=== PATIENT | male | born 2000 | race Caucasian/White ===

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

== ENCOUNTER 2018-02-13 20:40 | Emergency (ER) | payer SELFPAY ==
[~2018-02-13] VITALS: Ht 177.8 cm; Wt 63.5 kg
[~2018-02-13 20:40] MED LIST changes: +NAPR-1071 PO; -NAPR500T PO
--- NOTE | 2018-02-13 21:05 | ED Lower Extremity ---
General Chief Complaint: Lower Extremity Stated Complaint: LEFT ANKLE SWELLING, GETTING COLDER Nursing Triage Note: PT STATES HE TRIPED OVER HIS CAT AND FELL DOWN THE STAIRS. DENIES STRIKING HIS HEAD, WAS SEEN AT [facility] TODAY AND PROVIDED AN ESCOBAR WRAP TO THE LEFT ANKLE. PRESENTS TO THE ED D/T INCREASING SWELLING WITH INCREASED COLDNESS TO THE SKIN OF THE AFFECTED FOOT. PT REPORTS DECREASED ROM. Source: patient Exam Limitations: no limitations History of Present Illness Date Seen by Provider: Feb 13, 2018 Time Seen by Provider: 20:55 Initial Comments PT ARRIVES VIA POV C/O LEFT ANKLE INJURY STATES HE WAS ON HIS WAY TO TAKE FINAL EXAMS, AND TRIPPED OVER CAT AND FELL DOWN APPROXIMATELY 8 STEPS--STATES HE ROLLED DOWN THE STEPS--OCCURRED AT 1535 STATES HE DID HIT THE BACK OF HIS HEAD, BUT DID NOT HAVE LOSS OF CONSCIOUSNESS, DOES NOT HAVE A HEADACHE, NO VISION CHANGES, NO DIZZINESS, NO NAUSEA/VOMITING NO NECK OR BACK PAIN NO PARESTHESIAS OR MOTOR DEFICITS NO OTHER INJURIES ANYWHERE ELSE ON BODY, EXCEPT FOR LEFT ANKLE NO PRIOR INJURY TO THIS ANKLE STATES HE WENT TO [facility] AROUND 1750 AND HAD XRAYS, BUT WAS TOLD "THEY SAID THEY DIDN'T KNOW IF IT WAS BROKEN OR NOT" AND WRAPPED IN ESCOBAR WRAP, NO CRUTCHES, AND NO RX. STATES SINCE THEN, HE HAS HAD INCREASED PAIN, INCREASED SWELLING AND FOOT IS STARTING TO FEEL COLD. PCP: [facility] Allergies and Home Medications Allergies Coded Allergies: No Known Drug Allergies (Unverified , 05/15/14) Home Medications Baclofen 10 Mg Tablet, 10 MG PO Q8H PRN for SPASMS Prescribed by: LILIANE DAVID on 10/30/16 1443 Naproxen 500 Mg Tablet, 500 MG PO BID PRN for PAIN-MODERATE Prescribed by: LILIANE DAVID on 10/30/16 144 Prednisone 20 Mg Tab, 40 MG PO DAILY Prescribed by: LILIANE DAVID on 10/30/16 1443 Patient Home Medication List Home Medication List Reviewed: Yes Review of Systems Constitutional: no symptoms reported EENTM: no symptoms reported Respiratory: no symptoms reported Cardiovascular: no symptoms reported Gastrointestinal: no symptoms reported Genitourinary: no symptoms reported Musculoskeletal: see HPI Skin: no symptoms reported Psychiatric/Neurological: No Symptoms Reported Past [place]-Mcaozo-Srmkxe Hx Patient Social History 2nd Hand Smoke Exposure: No Recent Foreign Travel: No Contact w/Someone Who Travel: No Recent Infectious Disease Expo: No Recent Hopitalizations: No Immunizations Up To Date Tetanus Booster (TDap): Unknown Seasonal Allergies Seasonal Allergies: No Past Medical History Surgeries: No Respiratory: No Cardiac: No Neurological: No Reproductive Disorders: No Genitourinary: No Gastrointestinal: No Musculoskeletal: No Endocrine: No Cancer: No Psychosocial: No Integumentary: No Blood Disorders: No Adverse Reaction/Blood Tranf: No Family Medical History No Pertinent Family Hx Physical Exam Vital Signs Vital Signs - First Documented 02/13/18 20:52 Temp 99.7 Pulse 118 Resp 20 B/P (MAP) 163/97 Pulse Ox 96 O2 Delivery Room Air Capillary Refill : Height, Weight, BMI Height: 5'10.00" Weight: 140lbs. oz. 63.178411qd; 14.06 BMI Method:Stated General Appearance: WD/WN, no apparent distress HEENT: PERRL/EOMI, normal ENT inspection, TMs normal, pharynx normal Neck: non-tender, full range of motion, supple, normal inspection Cardiovascular: normal peripheral pulses, regular rate, rhythm, no edema, no JVD, no murmur Respiratory: chest non-tender, normal breath sounds, no respiratory distress, no accessory muscle use Gastrointestinal: normal bowel sounds, non tender, soft, no organomegaly Back: normal inspection, no CVA tenderness, no vertebral tenderness Hips: bilateral hip non-tender, bilateral hip normal inspection, bilateral hip normal range of motion, bilateral hip no evidence of injury Legs: bilateral leg non-tender, bilateral leg normal inspection, bilateral leg normal range of motion, bilateral leg no evidence of injury Knees: bilateral knee non-tender, bilateral knee normal inspection, bilateral knee normal range of motion, bilateral knee no evidence of injury Ankles: right ankle non-tender, right ankle normal inspection, right ankle normal range of motion, right ankle no evidence of injury; left ankle limited range of motion, left ankle pain, left ankle soft tissue tenderness, left ankle swelling, left ankle other (SIGNIFICANT SWELLING TO LEFT ANKLE--MOSTLY LATERAL MALLEOLUS, WITH MARKED TENDERNESS. NO SIGNIFICANT ECCHYMOSIS AND NO ABRASIONS TO AREA. DISTAL MOTOR/SENSORY/VASCULAR INTACT. 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, no motor/sensory deficits, alert, normal mood/affect, oriented x 3 Skin: normal color, warm/dry, other (NO WOUNDS ANYWHERE) Procedures/Interventions Splinting and Joint Reduction : Escobar wrap: Yes Immobilizers: Step Light Walker s/m/lg Progress/Results/Core Measures Results/Orders My Orders Orders - KEVEN ONTIVEROS DO Ankle, Left, 3 Views (02/13/18 20:58) Vital Signs/I&O 02/13/18 20:52 Temp 99.7 Pulse 118 Resp 20 B/P (MAP) 163/97 Pulse Ox 96 O2 Delivery Room Air Progress Progress Note : Progress Note PT DECLINES CRUTCHES AT THIS TIME--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 Referrals: NO,LOCAL PHYSICIAN (PCP/Family) Primary Care Physician Patient Instructions: Ankle Sprain (DC), How to Use an Elastic Bandage Add. Discharge Instructions: ESCOBAR WRAP AND BOOT NEEDED FOR PAIN ICE TO AREA AT 20 MINUTE INTERVALS WIGGLE TOES FREQUENTLY ELEVATE FOOT MUCH POSSIBLE FOLLOW UP WITH [facility] IN 1 WEEK IF NO BETTER All discharge instructions reviewed with patient and/or family. Voiced understanding. Scripts Tramadol HCl (Ultram) 50 Mg Tablet 50 MG PO Q4H, #10 TAB Prov: KEVEN ONTIVEROS DO 02/13/18 Naproxen (Naproxen) 500 Mg Tablet 500 MG PO BID, #12 TAB Prov: KEVEN ONTIVEROS DO 02/13/18 KEVEN ONTIVEROS DO Feb 13, 2018 21:05
--- NOTE | 2018-02-13 21:29 | Diagnostic Imaging Report ---
EXAMINATION: Left ankle, 3 views INDICATION: Left ankle pain after a fall down stairs. Swelling of the lateral left ankle. COMPARISON: 12/12/2013 left ankle radiographs. FINDINGS: No fracture or acute osseous abnormality. Intact ankle mortise, including the medial and lateral clear space. No osteochondral lesion of the talar dome. Bony alignment is maintained. No significant arthritic change. There is marked soft tissue swelling involving the lateral ankle soft tissues. IMPRESSION: Moderate swelling of the soft tissues in the lateral ankle, without evidence of acute fracture or dislocation. Dictated by: Dictated on workstation # [id number]
[2018-02-13] MEDS ORDERED: RX-NAPROXEN (NAPROSYN) 250 MG TAB PPK#4 PO STA (21:39)
[2018-02-13] MEDS ORDERED: RX-TRAMADOL 50 MG (ULTRAM) TAB PPK#4 PO STA (21:39)
[2018-02-13] MEDS ORDERED: NAPR-915 PO (21:44)
[2018-02-13] MEDS ORDERED: TRAM-42 PO (21:44)
[2018-02-13] MEDS ORDERED: RX-TRAMADOL 50 MG (ULTRAM) TAB PPK#4 PO ONE (22:04)
[2018-02-13] MEDS ORDERED: RX-NAPROXEN (NAPROSYN) 250 MG TAB PPK#4 PO ONE (22:05)
== END 2018-02-13 22:11 | disposition home or self-care (01) ==
LOC: EDUNIT# 20:40 → ER 20:41
DX: S93.402A Sprain of unspecified ligament of left ankle, initial encounter (principal); Z79.52 Long term (current) use of systemic steroids; W01.0XXA Fall on same level from slipping, tripping and stumbling without subsequent striking against object, initial encounter; W10.8XXA Fall (on) (from) other stairs and steps, initial encounter; W22.09XA Striking against other stationary object, initial encounter
CPT/HCPCS: 73610

== ENCOUNTER 2018-02-21 10:42 | Emergency (ER) | payer BC, OTHER ==
[~2018-02-21] VITALS: Ht 177.8 cm; Wt 63.0 kg
[~2018-02-21 10:42] MED LIST changes: +NAPR-915 PO; +TRAM-42 PO
--- OUTSIDE RECORDS SUMMARY | 2018-02-21 10:50 | XMS REPORT ---
Author Author JERRY ESPINOSA Organization [facility] Address [address] [place] [address] Care Team Providers Care Swimming Pool Maintenance Supervisor Name Role Phone JERRY ESPINOSA Unavailable PROBLEMS No Known Problems ALLERGIES No Known Allergies ENCOUNTERS Encounter Location Date Diagnosis [facility] [address] [address] Feb, Acute left ankle pain M25.572 and Sprain of left ankle, unspecified ligament, initial encounter S93.402A [facility] [address] [address] Jan, Non-intractable vomiting with nausea, unspecified vomiting type R11.2 [facility] [id number] [place] [address] [phone] Nov, Dental examination Z01.20 and Caries K02.9 [facility] [id number] [place] [address] Oct, Viral gastroenteritis A08.4 [facility] [id number] [place] [address] [phone] Mar, Dental examination Z01.20 [facility] [id number] [place] [address] [phone] Nov, Dental examination Z01.20 [facility] [id number] [place] [address] [phone] Sep, Dental examination Z01.20 [facility] [address] [id number] Jun, Encounter for dental examination Z01.20 [facility] [address] [id number] Jun, Dental examination Z01.20 [facility] [address] [phone] May, Dental examination Z01.20 [facility] [address] [place] [address] [phone] Apr, Dental examination Z01.20 [facility] [address] [place] [address]- [address] Mar, Dental examination Z01.20 [facility] [id number] [place] [address] [phone] Feb, Dental examination Z01.20 [facility] [id number] [place] [address] [phone] Dec, Dental examination Z01.20 [facility] [id number] [place] [address]53- [phone] Nov, Allergic rhinitis 477.9 and Insect bites 919.4 [facility] [id number] [place] [address] 29609- 39[address] Jun, [facility] [id number] [place] [address] 225003- 4780 Jun, [facility] [id number] [place] [address] 25732- 6817 Nov, [facility] [id number] [place] [address]- 0[address] Nov, IMMUNIZATIONS No Known Immunizations SOCIAL HISTORY Never Assessed REASON FOR VISIT left ankle pain- fell down the stairs today JStrasserRN PLAN OF CARE Activity Details Follow Up prn Reason: VITAL SIGNS Height 69 in 2018-02-13 Weight 138.8 lbs 2018-02-13 Temperature 98.1 degrees Fahrenheit 2018-02-13 Heart Rate 96 bpm 2018-02-13 Respiratory Rate 18 2018-02-13 BMI 20.49 kg/m2 2018-02-13 Blood pressure systolic 130 mmHg 2018-02-13 Blood pressure diastolic 74 mmHg 2018-02-13 MEDICATIONS No Known Medications RESULTS Name Result Date Reference Range Xray : Ankle, Left, 3 views (IN HOUSE) 2018-02-13 PROCEDURES Procedure Date Ordered Result Body Site X-RAY EXAM OF ANKLE Feb 13, 2018 INSTRUCTIONS MEDICATIONS ADMINISTERED No Known Medications MEDICAL (GENERAL) HISTORY Type Description Date Medical History Allergic rhinitis Surgical History root canal [phone]
--- OUTSIDE RECORDS SUMMARY | 2018-02-21 10:50 | XMS REPORT ---
Author Author JERRY ESPINOSA Organization [facility] Address [address] [place] [address] Care Team Providers Care Nuclear Process Engineer Name Role Phone EJRRY ESPINOSA Unavailable PROBLEMS No Known Problems ALLERGIES No Known Allergies ENCOUNTERS Encounter Location Date Diagnosis [facility] [address] [address] Jan, Non-intractable vomiting with nausea, unspecified vomiting type R11.2 [facility] [id number] [place] [address] [phone] Nov, Dental examination Z01.20 and Caries K02.9 [facility] [id number] [place] [address]- [address] Oct, Viral gastroenteritis A08.4 [facility] [address] [place] [address] [phone] Mar, Dental examination Z01.20 [facility] [id number] [place] [address] [phone] Nov, Dental examination Z01.20 [facility] [id number] [place] [address] [phone] Sep, Dental examination Z01.20 [facility] [id number] [place] [address] [phone] Jun, Encounter for dental examination Z01.20 [facility] [id number] [place] [address] [phone] Jun, Dental examination Z01.20 [facility] [id number] [place] [address] [phone] May, Dental examination Z01.20 [facility] [address] [phone] Apr, Dental examination Z01.20 [facility] [id number] [place] [address] 06160- 5[address] Mar, Dental examination Z01.20 [facility] [id number] [place] [address] [phone] Feb, Dental examination Z01.20 [facility] [id number] [place] [address] [phone] Dec, Dental examination Z01.20 [facility] [address] [address] Nov, Allergic rhinitis 477.9 and Insect bites 919.4 [place] [id number] [place] [address] 314134- 5[address] Jun, [place] [address] [phone]- [phone] Jun, [facility] [id number] [place] [address] 97181- [address] Nov, [place] [id number] [place] [address] 6[address]- [phone] Nov, IMMUNIZATIONS No Known Immunizations SOCIAL HISTORY Never Assessed REASON FOR VISIT stomach pain/vomiting since this morning. The patient says that it could be from drinking too much last night.--OLEG Crews PLAN OF CARE Activity Details Follow Up prn Reason: VITAL SIGNS Height 69 in 2018-01-04 Weight 133.2 lbs 2018-01-04 Temperature 97.9 degrees Fahrenheit 2018-01-04 Heart Rate 80 bpm 2018-01-04 Respiratory Rate 18 2018-01-04 BMI 19.67 kg/m2 2018-01-04 Blood pressure systolic 120 mmHg 2018-01-04 Blood pressure diastolic 56 mmHg 2018-01-04 MEDICATIONS Medication Instructions Dosage Frequency Start Date End Date Duration Status Zofran ODT 4 MG Orally every 4 hrs 1 tablet on the tongue and allow to dissolve as needed 4h Jan, 5 days Active RESULTS No Results PROCEDURES No Known procedures INSTRUCTIONS MEDICATIONS ADMINISTERED No Known Medications MEDICAL (GENERAL) HISTORY Type Description Date Medical History Allergic rhinitis Surgical History root canal [phone]
--- OUTSIDE RECORDS SUMMARY | 2018-02-21 10:51 | XMS REPORT ---
Author Author COY DESAI Jamar [facility] Address Unknown Care Team Providers Care Cleaner Furniture Name Role Phone COY DESAI Unavailable PROBLEMS Type Condition ICD9-CM Code ISB77-NT Code Onset Dates Condition Status SNOMED Code Problem Allergic rhinitis 477.9 Active 24952447 ALLERGIES No Known Allergies ENCOUNTERS Encounter Location Date Diagnosis [facility] [address] [id number] Sep, [facility] [address] [id number] Mar, Dental examination Z01.20 [facility] [address] [id number] Nov, Dental examination Z01.20 [facility] [address] [id number] Sep, Dental examination Z01.20 [facility] [address] [id number] Jun, Encounter for dental examination Z01.20 [facility] [id number] [place] [address] [phone] Jun, Dental examination Z01.20 [facility] [address] [id number] May, Dental examination Z01.20 [facility] [id number] [place] [address] [phone] Apr, Dental examination Z01.20 [facility] [id number] [place] [address]- 134[address] Mar, Dental examination Z01.20 [facility] [id number] [place] [address] [phone] Feb, Dental examination Z01.20 [facility] [address] [facility] [id number] [phone] 14 Dec, 2014 Dental examination Z01.20 [facility] [address], [place] [address] 21 Nov, 2014 Allergic rhinitis 477.9 and Insect bites 919.4 [facility] [address], [place] [address] 14 Jun, 2014 [facility] [address], [place] [address] Jun, [facility] [address], [place] [address] Nov, [facility] [address], [place] [address] Nov, IMMUNIZATIONS No Known Immunizations SOCIAL HISTORY Never Assessed REASON FOR VISIT FILLING PLAN OF CARE Activity Details Follow Up prn Reason:Filling #18 VITAL SIGNS Height 69 in 2017-03-09 Blood pressure systolic 81 mmHg 2017-03-09 Blood pressure diastolic 46 mmHg 2017-03-09 MEDICATIONS Medication Instructions Dosage Frequency Start Date End Date Duration Status Amoxicillin 500 MG Orally 4 times a day 1 tablet 6h 07 days Not- Taking Flonase 50 MCG/ACT Nasally 2 times a day 1 spray in each nostril 12h Nov Not-Taking Cetirizine HCl 10 MG Orally Once a day 1 tablet as needed 24h Nov, Not-Taking RESULTS No Results PROCEDURES Procedure Date Ordered Result Body Site RESIN COMPOS - ONE SURFACE ANTERIOR Mar 09, 2017 INSTRUCTIONS MEDICATIONS ADMINISTERED No Known Medications
--- OUTSIDE RECORDS SUMMARY | 2018-02-21 10:51 | XMS REPORT ---
Author Author ARSENCOY NAJERA Jamar [facility] Address Unknown Care Team Providers Care Conduit Installer Name Role Phone COY DESAI Unavailable PROBLEMS Type Condition ICD9-CM Code LJL12-UD Code Onset Dates Condition Status SNOMED Code Problem Allergic rhinitis 477.9 Active [id number] ALLERGIES No Known Allergies ENCOUNTERS Encounter Location Date Diagnosis [facility] [address] [phone] Nov, Dental examination Z01.20 and Caries K02.9 [facility] [address] [address] Oct, Viral gastroenteritis A08.4 [facility] [address] [place] [address] [phone] Mar, Dental examination Z01.20 [facility] [address] [place] [address] [phone] Nov, Dental examination Z01.20 [facility] [address] [place] [address] [phone] Sep, Dental examination Z01.20 [facility] [address] [phone] Jun, Encounter for dental examination Z01.20 [facility] [id number] [place] [address] [phone] Jun, Dental examination Z01.20 [facility] [address] [phone] May, Dental examination Z01.20 [facility] [address] [phone] Apr, Dental examination Z01.20 [facility] [address] [place] [address] Mar, Dental examination Z01.20 [facility] [id number] [place] [address] [id number] Feb, Dental examination Z01.20 [facility] [address] [place] [address] [phone] Dec, Dental examination Z01.20 [facility] [id number] [place] [address]- [phone] Nov, Allergic rhinitis 477.9 and Insect bites 919.4 [place] [id number] [place] [address] [phone] Jun, [facility] [id number] [place] [address] [phone] Jun, [place] [id number] [place] [address]13- [phone] Nov, [place] [address] [address] [place] [address] 73207- [phone] Nov, IMMUNIZATIONS No Known Immunizations SOCIAL HISTORY Never Assessed REASON FOR VISIT TE #18 w student This tooth was treatment planned for a occlusal filling and not an extraction. We will have to evaluate before we determine whether or not this tooth will be extracted. PLAN OF CARE Activity Details Follow Up prn Reason:#14-crown VITAL SIGNS Height 69 in 2017-12-01 Blood pressure systolic 144 mmHg 2017-12-01 Blood pressure diastolic 86 mmHg 2017-12-01 MEDICATIONS Medication Instructions Dosage Frequency Start Date End Date Duration Status Zofran ODT 4 MG Orally every 4 hrs 1 tablet on the tongue and allow to dissolve as needed 4h Oct, 3 days Not-Taking RESULTS No Results PROCEDURES Procedure Date Ordered Result Body Site BITEWINGS - FOUR FILMS Dec 01, 2017 RESIN COMPOS - 1 SURFACE POSTERIOR Dec 01, 2017 Billing Notes on claim Dec 01, 2017 RESIN COMPOS - 1 SURFACE POSTERIOR Dec 01, 2017 RESIN COMPOS - 1 SURFACE POSTERIOR Dec 01, 2017 PULP CAP - INDIRECT Dec 01, 2017 RESIN COMPOS - 1 SURFACE POSTERIOR Dec 01, 2017 INSTRUCTIONS MEDICATIONS ADMINISTERED No Known Medications MEDICAL (GENERAL) HISTORY Type Description Date Surgical History root canal [phone]
--- OUTSIDE RECORDS SUMMARY | 2018-02-21 10:51 | XMS REPORT ---
Author Author KING SHANE Organization [facility] Address [address] [place] [address] Care Team Providers Care Electrical And Instrument Mechanic Name Role Phone SHANE CARLISLE Unavailable PROBLEMS Type Condition ICD9-CM Code DXQ46-PC Code Onset Dates Condition Status SNOMED Code Problem Allergic rhinitis 477.9 Active [id number] ALLERGIES No Known Allergies ENCOUNTERS Encounter Location Date Diagnosis [facility] [address] [address] Oct, Viral gastroenteritis A08.4 [facility] [address] [phone] Mar, Dental examination Z01.20 [facility] [address] [place] [address] [phone] Nov, Dental examination Z01.20 [facility] [address] [place] [address] [phone] Sep, Dental examination Z01.20 [facility] [id number] [place] [address] [phone] Jun, Encounter for dental examination Z01.20 [facility] [address] [place] [address] [phone] Jun, Dental examination Z01.20 [facility] [id number] [place] [address] [phone] May, Dental examination Z01.20 [facility] [address] [place] [address] [phone] Apr, Dental examination Z01.20 [facility] [address] [address] Mar, Dental examination Z01.20 [facility] [address] [facility] [id number] [phone] Feb, Dental examination Z01.20 [facility] [id number] [phone] Dec, Dental examination Z01.20 [facility] [address], [place] [address] 21 Nov, 2014 Allergic rhinitis 477.9 and Insect bites 919.4 [place] [address] [place] [address]60- 8350 Jun, [place] [address] [place] [address] 84369- 6306 Jun, [place] [address] [place] [address] 36813- [phone] Nov, [place] [address] [address] [place] [address] 0[address]- 7311 Nov, IMMUNIZATIONS No Known Immunizations SOCIAL HISTORY Never Assessed REASON FOR VISIT Headache , stomach pain , diarrhea for the fist night , puking since monday -- luann saini PLAN OF CARE Activity Details Follow Up 2 - 3 Days if not better Reason:n/v VITAL SIGNS Height 69 in 2017-10-06 Weight 139.0 lbs 2017-10-06 Temperature 98.0 degrees Fahrenheit 2017-10-06 Heart Rate 91 bpm 2017-10-06 Respiratory Rate 17 2017-10-06 BMI 20.52 kg/m2 2017-10-06 Blood pressure systolic 126 mmHg 2017-10-06 Blood pressure diastolic 78 mmHg 2017-10-06 MEDICATIONS Medication Instructions Dosage Frequency Start Date End Date Duration Status Zofran ODT 4 MG Orally every 4 hrs 1 tablet on the tongue and allow to dissolve as needed 4h Oct, 03 days Active RESULTS No Results PROCEDURES No Known procedures INSTRUCTIONS MEDICATIONS ADMINISTERED No Known Medications MEDICAL (GENERAL) HISTORY Type Description Date Surgical History root canal
--- OUTSIDE RECORDS SUMMARY | 2018-02-21 10:51 | XMS REPORT ---
Author Author ARSENCOY NAJERA Jamar [facility] Address Unknown Care Team Providers Care Wind Site Manager Name Role Phone COY DESAI Unavailable PROBLEMS Type Condition ICD9-CM Code QIR90-RO Code Onset Dates Condition Status SNOMED Code Problem Allergic rhinitis 477.9 Active [id number] ALLERGIES No Known Allergies ENCOUNTERS Encounter Location Date Diagnosis [facility] [address] [place] [address] [phone] Mar, Dental examination Z01.20 [facility] [id number] [place] [address] [phone] Nov, Dental examination Z01.20 [facility] [address] [place] [address] [id number] Sep, Dental examination Z01.20 [facility] [id number] [place] [address] [phone] Jun, Encounter for dental examination Z01.20 [facility] [id number] [place] [address] [phone] Jun, Dental examination Z01.20 [facility] [id number] [place] [address] [id number] May, Dental examination Z01.20 [facility] [id number] [place] [address] [phone] Apr, Dental examination Z01.20 [facility] [address] [place] [address] [phone]- 3226 Mar, Dental examination Z01.20 [facility] [id number] [place] [address] [phone] Feb, Dental examination Z01.20 [facility] [id number] [place] [address] [phone] Dec, Dental examination Z01.20 [facility] [address] [address] 21 Nov, 2014 Allergic rhinitis 477.9 and Insect bites 919.4 [place] [address] [address] Jun, [place] [address] Jun, [place] [address] [phone] Nov, [place] [address] [phone] Nov, IMMUNIZATIONS No Known Immunizations SOCIAL HISTORY Never Assessed REASON FOR VISIT walk in pain PLAN OF CARE Activity Details Follow Up prn Reason:fillings VITAL SIGNS MEDICATIONS Unknown Medications RESULTS No Results PROCEDURES Procedure Date Ordered Result Body Site LTD ORAL EVALUATION - PROBLEM FOCUS Nov 15, 2016 INSTRUCTIONS MEDICATIONS ADMINISTERED No Known Medications
--- OUTSIDE RECORDS SUMMARY | 2018-02-21 10:51 | XMS REPORT ---
Author Author LEXIE AVALOS [facility] Address [address] [place] [address] Phone Unavailable Care Team Providers Care Sock Liner Name Role Phone LEXIE AVALOS Unavailable Unavailable PROBLEMS Type Condition ICD9-CM Code HXG70-SF Code Onset Dates Condition Status SNOMED Code Problem Allergic rhinitis 477.9 Active 82357108 ALLERGIES No Known Allergies ENCOUNTERS Encounter Location Date Diagnosis [facility] [address] [place] [address] [phone] Mar, Dental examination Z01.20 [facility] [id number] [place] [address] [phone] Nov, Dental examination Z01.20 [facility] [id number] [place] [address] [id number] Sep, Dental examination Z01.20 [facility] [id number] [place] [address] [phone] Jun, Encounter for dental examination Z01.20 [facility] [id number] [place] [address] [phone] Jun, Dental examination Z01.20 [facility] [id number] [place] [address] [id number] May, Dental examination Z01.20 [facility] [id number] [place] [address] [phone] Apr, Dental examination Z01.20 [facility] [id number] [place] [address] [phone]- 30[address] Mar, Dental examination Z01.20 [facility] [id number] [place] [address] [phone] Feb, Dental examination Z01.20 [facility] [address] [id number] [place] [address] [phone] 14 Dec, 2014 Dental examination Z01.20 [facility] [id number], [place] [address] 21 Nov, 2014 Allergic rhinitis 477.9 and Insect bites 919.4 [facility] [address], [place] [address] 14 Jun, 2014 [place] [id number] [address] 89[address] 13 Jun, 2014 [place] [id number] [address]- [address] 11 Nov, 2013 [place] [address] [facility] [id number] [address] 11 Nov, 2013 IMMUNIZATIONS No Known Immunizations SOCIAL HISTORY Never Assessed REASON FOR VISIT PROPHY PLAN OF CARE Activity Details Follow Up ruben Reason:restore VITAL SIGNS Blood pressure systolic 125 mmHg 2016-09-21 Blood pressure diastolic 83 mmHg 2016-09-21 MEDICATIONS Unknown Medications RESULTS No Results PROCEDURES Procedure Date Ordered Result Body Site PERIODIC ORAL EXAMINATION September 21, 2016 INTRAORL-PERIAPICAL 1 FILM [id number] September 21, 2016 TOPICAL FLUORIDE VARNISH September 21, 2016 PROPHYLAXIS - ADULT September 21, 2016 INTRAORL-PERIAPICAL EA ADD FILM September 21, 2016 INTRAORL-PERIAPICAL EA ADD FILM September 21, 2016 BITEWINGS - FOUR FILMS September 21, 2016 INTRAORL-PERIAPICAL EA ADD FILM September 21, 2016 INSTRUCTIONS MEDICATIONS ADMINISTERED No Known Medications
--- OUTSIDE RECORDS SUMMARY | 2018-02-21 10:51 | XMS REPORT | Continuity of Care Document ---
Author Author [facility] Organization [facility] Address Unknown Phone Unavailable Allergies Active Description Code Type Severity Reaction Onset Reported/Identified Relationship to Patient Clinical Status Yes No Known Drug Allergies [id number] Drug Allergy Unknown N/A 05/15/2014 Medications There is no data. Problems Date Dx Coded Attending Type Code Diagnosis Diagnosed By 11/14/2013 LEIDY DURAN APRN 008.8 GASTROENTERITIS, VIRAL 05/16/2014 Ot 780.60 FEVER, UNSPECIFIED 05/16/2014 Ot 787.01 NAUSEA WITH VOMITING 05/16/2014 Ot 787.91 DIARRHEA 10/30/2016 LILIANE WAHL Ot M25.511 PAIN IN RIGHT SHOULDER 10/30/2016 LILIANE WAHL Ot S46.811A [facility] 10/30/2016 LILIANE WAHL Ot X50.3XXA OVEREXERTION FROM REPETITIVE MOVEMENTS, 10/30/2016 LILIANE WAHL Ot Y92.69 [facility] 11/01/2016 LILIANE WAHL Ot M25.511 PAIN IN RIGHT SHOULDER 11/01/2016 LILIANE WAHL Ot S46.811A STRAIN OF MUSC/FASC/TEND AT LDR/UP ARM 11/01/2016 LILIANE WAHL Ot X50.3XXA OVEREXERTION FROM REPETITIVE MOVEMENTS, 11/01/2016 LILIANE WAHL Ot Y92.69 [facility] 11/15/2016 PHOEBE JERRY MD Ot M54.14 RADICULOPATHY, THORACIC REGION 11/15/2016 PHOEBE JERRY MD Ot M54.6 PAIN IN THORACIC SPINE 11/17/2016 PHOEBE JERRY MD Ot M54.14 RADICULOPATHY, THORACIC REGION 11/17/2016 PHOEBE JERRY MD Ot M54.6 PAIN IN THORACIC SPINE 02/15/2018 KEVEN ONTIVEROS DO Ot S93.402A SPRAIN OF UNSPECIFIED LIGAMENT OF LEFT A 02/15/2018 KEVEN ONTIVEROS DO Ot S99.912A UNSPECIFIED INJURY OF LEFT ANKLE, INITIA 02/15/2018 KEVEN ONTIVEROS DO Ot W01.0XXA FALL SAME LEV FROM SLIP/TRIP W/O STRIKE 02/15/2018 KEVEN ONTIVEROS DO Ot W10.8XXA FALL (ON) (FROM) OTHER STAIRS AND STEPS, 02/15/2018 KEVEN ONTIVEROS DO Ot W22.09XA STRIKING AGAINST OTHER STATIONARY OBJECT 02/15/2018 KEVEN ONTIVEROS DO Ot 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 Results There is no data. Encounters ACCT No. Visit Date/Time Discharge Status Pt. Type Provider Facility Loc./Unit Complaint [id number] 02/13/2018 20:41:00 02/13/2018 22:11:00 DIS Outpatient KEVEN ONTIVEROS DO [facility] ER LEFT ANKLE SWELLING, GETTING COLDER [id number] 11/15/2016 13:35:00 11/15/2016 14:12:00 DIS Emergency PHOEBE JERRY MD [facility] ER UPPER BACK PAIN [id number] 10/30/2016 12:01:00 10/30/2016 14:50:00 DIS Emergency LILIANE WAHL [facility] ER BACK PAIN [id number] 12/12/2013 17:36:00 12/12/2013 23:59:59 CLS Outpatient [id number] 05/15/2014 23:30:00 Document Registration [id number] 02/13/2018 17:20:00 02/13/2018 23:59:59 CLS Outpatient SHIV [facility]CILLA [facility] [id number] 11/14/2013 12:29:00 11/14/2013 23:59:59 CLS Outpatient LEIDY DURAN APRN
--- NOTE | 2018-02-21 11:29 | ED Lower Extremity ---
General Chief Complaint: Lower Extremity Stated Complaint: ANKLE/FOOT PAIN Nursing Triage Note: pt presents to er with complaint of left ankle pain. states a week ago he tripped over a cat and fell. states he was seen in er and told it was a sprain. states he was told to come back in a week if the ankle was not better. pt states he feels it hurts worse. Source: patient Exam Limitations: no limitations History of Present Illness Date Seen by Provider: Feb 21, 2018 Time Seen by Provider: 11:24 Initial Comments Patient is a 17-year-old male who presents to the emergency room with complaints of left ankle pain and swelling. He reports that 1 week ago he was seen in our emergency room after tripping over a cat and falling down a few stairs. He was seen at [facility] and had x-rays of the ankle done and told that it was not fractured he was also seen in the emergency room later that day and have the ankle re-x-rayed with no fractures noted. He was told to return if ankle is not better. The patient reports that he is out of his pain medication and has increasing swelling. He denies elevating the foot as much as he possibly could. There is ecchymosis to the toes of his left foot and moderate swelling to the ankle. He did ambulate to the ER exam room. He has crutches at home and has not been using them. Onset: just prior to arrival Pain/Injury Location: left ankle Method of Injury: twisted Modifying Factors: Worse With Movement; Improves With Pain Medication Allergies and Home Medications Allergies Coded Allergies: No Known Drug Allergies (Unverified , 05/15/14) Home Medications Baclofen 10 Mg Tablet, 10 MG PO Q8H PRN for SPASMS Prescribed by: LILIANE DAVID on 10/30/16 144 Naproxen 500 Mg Tablet, 500 MG PO BID PRN for PAIN-MODERATE Prescribed by: LILIANE DAVID on 10/30/16 144 Naproxen 500 Mg Tablet, 500 MG PO BID Prescribed by: KEVEN ONTIVEROS on 02/13/182143 Prednisone 20 Mg Tab, 40 MG PO DAILY Prescribed by: LILIANE DAVID on 10/30/16 144 Tramadol HCl 50 Mg Tablet, 50 MG PO Q4H Prescribed by: KEVEN ONTIVEROS on 02/13/182143 Tramadol HCl 50 Mg Tablet, 50 MG PO Q4H Prescribed by: NORI CRUZ on 02/21/18 1133 Patient Home Medication List Home Medication List Reviewed: Yes Review of Systems Constitutional: see HPI; No chills, No fever Musculoskeletal: see HPI, joint pain (left ankle), joint swelling (left ankle) All Other Systems Reviewed Negative Unless Noted: Yes Past Bxeoivd-Ulrzlj-Qoyndp Hx Past Med/Social Hx: Reviewed Nursing Past Med/Soc Hx Patient Social History Alcohol Use: Denies Use Recreational Drug Use: No Smoking Status: Never a Smoker 2nd Hand Smoke Exposure: No Recent Foreign Travel: No Contact w/Someone Who Travel: No Recent Infectious Disease Expo: No Recent Hopitalizations: No Ebola Symptoms: Denies Symptoms Listed Immunizations Up To Date Tetanus Booster (TDap): Unknown Seasonal Allergies Seasonal Allergies: No Past Medical History Surgeries: No Respiratory: No Cardiac: No Neurological: No Reproductive Disorders: No Sexually Transmitted Disease: No HIV/AIDS: No Genitourinary: No Gastrointestinal: No Musculoskeletal: No Endocrine: No HEENT: No Cancer: No Psychosocial: No Integumentary: No Blood Disorders: No Adverse Reaction/Blood Tranf: No Family Medical History Reviewed Nursing Family Hx No Pertinent Family Hx Physical Exam Vital Signs Vital Signs - First Documented 02/21/18 11:12 Temp 98.0 Pulse 86 Resp 20 B/P (MAP) 111/78 Pulse Ox 97 O2 Delivery Room Air Capillary Refill : Height, Weight, BMI Height: 5'10.00" Weight: 139lbs. oz. 63.654052pg; 14.06 BMI Method:Stated General Appearance: WD/WN, no apparent distress HEENT: PERRL/EOMI Cardiovascular: normal peripheral pulses, regular rate, rhythm, no edema, no gallop, no JVD, no murmur Respiratory: chest non-tender, lungs clear, normal breath sounds, no respiratory distress, no accessory muscle use Ankles: left ankle ecchymosis, left ankle joint effusion, left ankle pain, left ankle soft tissue tenderness, left ankle swelling Neurologic/Tendon: normal sensation, normal motor functions, normal tendon functions, responds to pain, no evidence tendon injury Neurologic/Psychiatric: alert, normal mood/affect, oriented x 3 Skin: normal color, warm/dry Normal capillary refill and distal pulses present. Progress/Results/Core Measures Results/Orders Vital Signs/I&O 02/21/18 11:12 Temp 98.0 Pulse 86 Resp 20 B/P (MAP) 111/78 Pulse Ox 97 O2 Delivery Room Air Progress Progress Note : Time: 11:30 Progress Note I have seen and evaluated the patient. I've discussed with him for further evaluation needed for the ankle sprain. I will be providing contact information for orthopedic surgeons for further evaluation. He agrees with plan of care, plans for discharge, return precautions were given. Departure Impression Primary Impression: Ankle sprain Disposition: HOME, SELF-CARE Condition: Stable/Unchanged Departure-Patient Inst. Decision time for Depature: 11:32 Referrals: NO,LOCAL PHYSICIAN (PCP) Primary Care Physician WASHINGTON VILLELA MD Patient Instructions: Ankle Sprain (DC) Add. Discharge Instructions: Take the pain medication as directed. You may use Tylenol and bupropion in addition to pain medicine. Stay off the ankle as much as possible and continue to use ice, Escobar bandage, crutches, elevate to help with swelling. Call Dr. Villela's office today to try to schedule an appointment time. Return back to the emergency room for any worsening symptoms or concerns as needed. All discharge instructions reviewed with patient and/or family. Voiced understanding. Scripts Tramadol HCl (Tramadol HCl) 50 Mg Tablet 50 MG PO Q4H, #20 TAB Prov: NORI CRUZ 02/21/18 NORI CRUZ Feb 21, 2018 11:29
[2018-02-21] MEDS ORDERED: TRAM50TA2 PO (11:33)
== END 2018-02-21 11:52 | disposition home or self-care (01) ==
LOC: EDUNIT# 10:42 → ER 10:43
DX: S93.402A Sprain of unspecified ligament of left ankle, initial encounter (principal); Z79.52 Long term (current) use of systemic steroids; W10.8XXA Fall (on) (from) other stairs and steps, initial encounter; X50.1XXA Overexertion from prolonged static or awkward postures, initial encounter
CPT/HCPCS: 99282

== ENCOUNTER 2018-06-29 23:38 | Emergency (ER) | payer SELFPAY ==
[~2018-06-29 23:38] MED LIST changes: +TRAM50TA2 PO
--- NOTE | 2018-06-29 23:50 | NUR ---
LEFT IN HANDCUFFS WITH BATSHEVA TRENT.
== END 2018-06-29 23:50 ==
LOC: EDUNIT# 23:38 → ER 23:40
DX: Z02.89 Encounter for other administrative examinations (principal)